=== PATIENT | male | born 1965 | race Caucasian/White ===

== ENCOUNTER 2017-01-10 09:55 | Emergency (ER) | payer OTHER ==
[2017-01-10 10:00] VITALS: TEMP 98.4
[2017-01-10] MEDS ORDERED: NS 1,000 ML IV ONE (10:16)
[2017-01-10] MEDS ORDERED: HYDROmorphONE/DILAUDID 1 MG/ML SYR IVP ONE (10:16)
[2017-01-10] MEDS ORDERED: ONDANSETRON 4 MG/2 ML VIAL IVP ONE (10:16)
--- NOTE | 2017-01-10 10:19 | EDPHY ---
H & P Smoking Status: Never smoked Time Seen by Provider: 01/10/17 10:11 HPI/ROS: CHIEF COMPLAINT: Right flank pain, abdominal pain HISTORY OF PRESENT ILLNESS: 51-year-old male presents to the emergency department by private vehicle complaining of severe right flank and abdominal pain. The pain began abruptly approximately 20 minutes prior to arrival. He had a kidney stone many years ago and states that this feels very similar. He denies dysuria, urgency or frequency with urination. He has not noticed any hematuria. He vomited prior to arrival in the emergency department. He still feels mildly nauseous. He denies fevers or chills. Denies any reported trauma. Denies any other trauma or injury. REVIEW OF SYSTEMS: Constitutional: No fever, no chills. Eyes: No double or blurry vision. ENT: No sore throat. Respiratory: No cough, no shortness of breath. Cardiac: No chest pain. Gastrointestinal: Abdominal pain as above. Vomiting. No diarrhea. Genitourinary: No dysuria. Musculoskeletal: Right flank pain as above. No neck pain. Skin: No rashes. Neurological: No headache. (Cahrmaine Hernandez M) Past Medical/Surgical History: Kidney stone (Charmaine Hernandez M) Social History: (Charmaine Hernandez M) Physical Exam: General Appearance: Alert, obvious distress. 141/99. Eyes: Pupils equal and round. Extraocular motions are all intact. ENT: Mouth: Mucous membranes moist. Respiratory: No wheezing, rhonchi, or rales, lungs are clear to auscultation. Cardiovascular: Regular rate and rhythm. Gastrointestinal: Abdomen is soft. Tenderness with palpation in the right lower quadrant as well as in the right mid abdomen. Positive CVA tenderness on the right, none on the left. There is no rebound, guarding or masses noted. Neurological: Alert and oriented x 3, cranial nerves II through XII grossly intact Skin: Warm and dry, no rashes. Genitourinary: Patient has a large right inguinal hernia which is easily compressible and nontender. Musculoskeletal: Nontender to palpate along the cervical, thoracic or lumbar spine. Neck is supple. Extremities: Full range of motion and no peripheral edema. Psychiatric: Patient is oriented X 3, there is no agitation. (Aurora Hernandeza M) Constitutional: Initial Vital Signs Temperature (C) 36.9 C 01/10/17 09:58 Heart Rate 58 L 01/10/17 09:58 Respiratory Rate 18 01/10/17 09:58 Blood Pressure 141/99 H 01/10/17 09:58 O2 Sat (%) 100 01/10/17 09:58 O2 Delivery Mode Room Air Allergies/Adverse Reactions: No Known Allergies Allergy (Unverified 01/10/17 09:58) Home Medications: Medication Instructions Recorded Tamsulosin HCl [Flomax 0.4 MG (*)] 0.4 mg PO DAILY #10 cap 01/10/17 Medical Decision Making - Diagnostics Imaging: Discussed imaging studies w/ call center representative Radiologist ED Course/Re-evaluation: 51-year-old male presents with right flank and abdominal pain. CT imaging reveals 3 mm stone at the right UVJ with [id number] hydronephrosis. The patient received 1 mg of IV Dilaudid and 15 mg of IV Toradol. The patient had complete resolution of his symptoms upon discharge. Patient was given a urine strainer as well as urology referral. CT imaging did reveal pulmonary nodules. I did explain that he should have follow-up CT scan as recommended by the radiologist. The patient states that he was a former smoker and quit 6 years ago. Patient was instructed to return if he developed worsening pain, vomiting, fever , or if he seems worse in any way. He was comfortable with this plan. On examination the patient does have a large right inguinal hernia which is easily compressible. The patient has had this for several months. No evidence of incarcerated hernia. The patient was given general surgery referral. (Charmaine Hernandez) Differential Diagnosis: Including but not limited to kidney stone, pyelonephritis, urinary tract infection (Charmaine Hernandez) Other Provider: The patient was evaluated and managed by the Physician Central Supply Technician/ Nurse Practitioner. I discussed the patient's presentation and course with the midlevel provider with them and agree with the evaluation. My co-signature indicates that I have reviewed this chart and I agree with the findings and plan of care as documented. I am the secondary supervising physician. (Lisa Aguilar) - Data Points Laboratory Results: Laboratory Results 01/10/17 10:15 01/10/17 10:15 Microbiology Results: MICROBIOLOGY 01/10/17 10:20 Urine,Clean Catch Urine Culture - Final Medications Given: Discontinued Medications Hydromorphone HCl (Dilaudid) 1 mg IVP EDNOW ONE Stop: 01/10/17 10:17 Last Admin: 01/10/17 10:24 Dose: 1 mg Sodium Chloride (Ns) 1,000 mls @ 0 mls/hr IV ONCE ONE PRN Reason: Wide Open Stop: 01/10/17 10:17 Last Admin: 01/10/17 10:24 Dose: 1,000 mls Ketorolac Tromethamine (Toradol) 15 mg IVP EDNOW ONE Stop: 01/10/17 10:55 Last Admin: 01/10/17 11:03 Dose: 15 mg Ondansetron HCl (Zofran) 4 mg IVP EDNOW ONE Stop: 01/10/17 10:17 Last Admin: 01/10/17 10:24 Dose: 4 mg Tamsulosin HCl (Flomax) 0.4 mg PO EDNOW ONE Stop: 01/10/17 11:44 Last Admin: 01/10/17 11:50 Dose: 0.4 mg Departure - Departure Disposition: Home, Routine, Self-Care Clinical Impression: Kidney stone on right side, Right inguinal hernia Condition: Good Instructions: Kidney Stones (ED), Renal Colic (ED), Inguinal Hernia (ED) Additional Instructions: Flomax daily until you have passed a kidney stone. Use a urine strainer every time you urinate to see if you catch the stone. Ibuprofen 600 mg every 8 hours as needed for pain starting tomorrow since your given IV Toradol in the emergency department. Drink plenty of fluids. Follow up with urologist as discussed. You have a right inguinal hernia. If this becomes larger, more painful, you need to follow up with general surgeon sooner or return to the emergency department immediately. Referrals: Bryan Nj MD [Medical Doctor] - As per Instructions (General surgeon on- call) Kingsley Lin MD [Medical Doctor] - As per Instructions (Urologist on-call) Prescriptions: Tamsulosin HCl [Flomax 0.4 MG (*)] 0.4 mg PO DAILY #10 cap
[2017-01-10 10:25] LABS: % IMMATURE GRANULYOCYTES 0.2 % (0.0-1.1); ABSOLUTE IMMATURE GRANULOCYTES 0.01 10^3/uL (0.00-0.10); ADD DIFF? NO; ADD MORPH? NO; ADD SCAN? NO; ATYPICAL LYMPHOCYTE FLAG 20 (0-99); FRAGMENT RBC FLAG 0 (0-99); HEMOGLOBIN 15.2 g/dL (13.7-17.5); LEFT SHIFT FLG 0 (0-99); LIPEMIA HEMOLYSIS FLAG 90 (0-99); MEAN CELL HEMOGLOBIN 31.1 pg (27.9-34.1); MEAN CELL HEMOGLOBIN CONCENTR. 35.3 g/dL (32.4-36.7); MEAN CELL VOLUME 87.9 fL (81.5-99.8); MEAN PLATELET VOLUME 9.3 fL (8.7-11.7); PLATELET CLUMPS FLAG 0 (0-99); PLATELET COUNT 269 10^3/uL (150-400); RED BLOOD CELL COUNT 4.89 10^6/uL (4.40-6.38)
[2017-01-10 10:41] LABS: COLOR YELLOW; LEUKOCYTE ESTERASE,URINE NEGATIVE (NEGATIVE); NITRITE,URINE NEGATIVE (NEGATIVE)
[2017-01-10 10:49] LABS: ANION GAP 13 mEq/L (8-16); CALCIUM 9.9 mg/dL (8.5-10.4); CARBON DIOXIDE 19 mEq/l (22-31); CHLORIDE 110 mEq/L (97-110); GLOMERULAR FILTRATION RATE > 60; GLUCOSE 101 mg/dL (70-100); POTASSIUM 3.9 mEq/L (3.5-5.2); SODIUM 142 mEq/L (134-144)
[2017-01-10] MEDS ORDERED: KETOROLAC 30 MG/1 ML SDV IVP ONE (10:54)
[2017-01-10 11:02] LABS: BACTERIA 2+ /hpf (NONE SEEN); MUCUS 1+ /lpf (NONE-1+); RBC,URINE 50-182 /hpf (0-3)
[2017-01-10] MEDS ORDERED: TAMSULOSIN HCL 0.4 MG CAP PO ONE (11:43)
[2017-01-10 11:56] VITALS: BP 139/84; PULSE 64; RESP 16; O2SAT 96
== END 2017-01-10 11:55 | disposition home or self-care (01) ==
DX: N20.0 Calculus of kidney (principal); K40.90 Unilateral inguinal hernia, without obstruction or gangrene, not specified as recurrent
CPT/HCPCS: 96374; J1170; J1885; J2405